=== PATIENT | female | born 1990 | race Caucasian/White ===

== ENCOUNTER 2018-12-07 11:47 | Emergency (ER) | payer OTHER ==
--- NOTE | 2018-12-07 12:49 | C.PDOC ---
History Of Present Illness 28 y/o female presents to ED stating that she had an episode of syncope from hypoglycemia. States that she woke up at 8am this morning at a hotel and passed out. Syncope was witnessed by family. As per mom, she used an emergency rescue glucagon kit. Patient denies any fever, chills, nausea, vomiting, or other complaints. Time Seen by Provider: 12/07/18 11:56 Chief Complaint (Nursing): Medical Clearance History Per: Patient History/Exam Limitations: no limitations Onset/Duration Of Symptoms: Hrs Current Symptoms Are (Timing): Still Present Past Medical History Reviewed: Historical Data, Nursing Documentation, Vital Signs Vital Signs: Last Vital Signs Temp 97.8 F 12/07/18 11:47 Pulse 102 H 12/07/18 11:47 Resp 19 12/07/18 11:47 BP 177/100 H 12/07/18 11:47 Pulse Ox 100 12/07/18 11:47 Primary Care Provider: Non [facility] Provider, Family History: States: No Known Family Hx - Social History Hx Alcohol Use: No Hx Substance Use: No - Immunization History Hx Tetanus Toxoid Vaccination: No Hx Influenza Vaccination: No Hx Pneumococcal Vaccination: No Review Of Systems Except As Marked, All Systems Reviewed And Found Negative. Constitutional: Positive for: Weakness. Negative for: Fever, Chills Gastrointestinal: Negative for: Nausea, Vomiting, Abdominal Pain Skin: Negative for: Rash Neurological: Positive for: Other (syncope). Negative for: Weakness, Numbness Physical Exam - Physical Exam Appears: Non-toxic, No Acute Distress Skin: Warm, Dry, No Rash Head: Atraumatic, Normacephalic Eye(s): bilateral: Normal Inspection, PERRL, EOMI Oral Mucosa: Moist Neck: Normal ROM, Supple Chest: Symmetrical, No Tenderness Cardiovascular: Rhythm Regular, No Friction Rub, No Murmur Respiratory: Normal Breath Sounds, No Rales, No Rhonchi, No Wheezing Gastrointestinal/Abdominal: Bowel Sounds (active), Soft, No Tenderness Back: Normal Inspection, No CVA Tenderness Extremity: Normal ROM, No Swelling Extremity: Bilateral: Atraumatic, Normal ROM Neurological/Psych: Oriented x3, Normal Speech, Normal Motor Gait: Steady ED Course And Treatment - Laboratory Results Result Diagrams: 12/07/18 12:37 12/07/18 12:37 O2 Sat by Pulse Oximetry: 100 (RA) Pulse Ox Interpretation: Normal Medical Decision Making Medical Decision Making: Plan: --Labs --Urine HCG --UA Patient vomited x1 in the ED. Zofran ODT ordered. The patient still feels nausea and feels like she is having a panic attack. Reglan IV and Xanax PO ordered. Vitals and labs are WNL's. The patient has had no hypoglycemia while in the ED On re-exam, the patient reports improvement of symptoms. Lungs are CTA, heart is RRR, abdomen is soft, non-tender and tolerating PO well. Follow up with the medical doctor/clinic within 1-2 days. Return if worsened. Disposition Counseled Patient/Family Regarding: Diagnosis - Disposition Referrals: [facility] [Outside] [facility] [Outside] Disposition: HOME/ ROUTINE Disposition Time: 18:21 Condition: STABLE Additional Instructions: Follow up with the medical doctor/clinic within 1-2 days. Return if worsened. Prescriptions: Glucagon [Glucagen Diagnostic Kit] 1 mg IM ONCE #1 vial Instructions: Hyperglycemia, Adult (DC) Forms: [employer] (Kazakh) - Clinical Impression Clinical Impression: Hypoglycemia, Hyperglycemia - PA / REPORTING DEVELOPER / Resident Statement MD/DO has reviewed & agrees with the documentation as recorded. - Scribe Statement The provider has reviewed the documentation as recorded by the Scribe Kelsey Cline All medical record entries made by the Michelleibe were at my direction and personally dictated by me. I have reviewed the chart and agree that the record accurately reflects my personal performance of the history, physical exam, medical decision making, and the department course for this patient. I have also personally directed, reviewed, and agree with the discharge instructions and disposition.
[2018-12-07 13:06] LABS: BASO # 0.1 K/uL (0.0-0.2); BASO % 0.5 % (0.0-2.0); EOS % 0.2 % (0.0-4.0); HEMOGLOBIN 13.3 g/dL (11.0-16.0); LYMPH # 0.6 K/uL (1.0-4.3); LYMPH % 4.7 % (20.0-40.0); MEAN CELL VOLUME 83.1 fL (81.0-99.0); MEAN CORPUSCULAR HEMOGLOBIN 28.4 pg (27.0-31.0); MEAN CORPUSCULAR HGB CONC 34.2 g/dL (33.0-37.0); MEAN PLATELET VOLUME 9.2 fL (7.2-11.7); MONO # 0.6 K/uL (0.0-0.8); MONO % 4.3 % (0.0-10.0); NEUT # 12.3 K/uL (1.8-7.0); NEUT % 90.3 % (50.0-75.0); PLATELET COUNT 228 K/uL (130-400); RBC 4.68 Mil/uL (3.80-5.20); RED CELL DISTRIBUTION WIDTH 12.5 % (11.5-14.5); WHITE BLOOD COUNT 13.7 K/uL (4.8-10.8)
[2018-12-07 13:19] LABS: HCG,QUALITATIVE URINE NEGATIVE (NEGATIVE)
[2018-12-07 13:23] LABS: SQUAMOUS EPITHIAL 3 /hpf (0-5); URINE BACTERIA RARE (<OCC); URINE BILIRUBIN NEGATIVE (NEGATIVE); URINE BLOOD 1+ (NEGATIVE); URINE CLARITY Clear (Clear); URINE COLOR Yellow (YELLOW); URINE GLUCOSE (UA) 3+ mg/dL (Normal); URINE LEUKOCYTE ESTERASE TRACE Leu/uL (Negative); URINE PROTEIN 2+ mg/dL (NEGATIVE); URINE UROBILINOGEN NORMAL mg/dL (0.2-1.0)
[2018-12-07 13:26] LABS: ALB/GLOB RATIO 1.5 (1.0-2.1); ALBUMIN 4.3 g/dL (3.5-5.0); CALCIUM 9.4 mg/dl (8.6-10.4)
[2018-12-07] MEDS ORDERED: (Novolin R) Insulin Human Regular 100 units/ml vial IVP STA (13:43)
[2018-12-07] MEDS ORDERED: Sodium Chloride 0.9% 1,000 ML IV ONE (13:43)
[2018-12-07 13:59] LABS: BANDS 6 % (0-2); EOSINOPHIL 1 % (0-4); LYMPHOCYTE 4 % (20-40); MONOCYTE 2 % (0-10); NEUTROPHIL 87 % (50-75); PLATELET ESTIMATE NORMAL (NORMAL); TOTAL CELLS COUNTED 100
[2018-12-07 14:00] LABS: OVALOCYTES SLIGHT
[2018-12-07] MEDS ORDERED: Sodium Chloride 0.9% 1,000 ML ONE (14:04)
[2018-12-07] MEDS ORDERED: (Novolin R) Insulin Human Regular 100 units/ml vial ONE (17:06)
[2018-12-07 18:06] VITALS: BP 127/59; PULSE 101; RESP 20; TEMP 98.2
[2018-12-07 18:19] VITALS: O2SAT 100
== END 2018-12-07 18:51 | disposition home or self-care (01) ==
LOC: C.ER 11:47
DX: E16.2 Hypoglycemia, unspecified (principal); R73.9 Hyperglycemia, unspecified
CPT/HCPCS: 36415; 80053; 81001; 82948; 84703; 85025; 96361; 96374; 96375; 99285; J2405; J2765; J7030